=== PATIENT | male | born 1940 | race Caucasian/White ===

== ENCOUNTER 2017-01-10 22:51 | Observation (INO) | payer MEDICARE ==
[~2017-01-10] VITALS: Ht 177.8 cm; Wt 93.0 kg
[~2017-01-10 22:51] MED LIST: ALBU8.5H2 INHALATION; AMIO200T PO; ASCO-339 PO; ASPI81TA3 PO; AZIT250T4 PO; CALC500T3 PO; CETI-188 PO; CHOL100094 PO; CLOP75TA3 PO; LIP40 PO; METO25TA6 PO; MULT1CAP33 PO; NITR0.4T6 SL; PRE20 PO; PYRI100T2 PO; SYMINH IH
[2017-01-10 22:55] VITALS: BP 147/70; PULSE 70; RESP 22; O2SAT 92
[2017-01-10] MEDS ORDERED: Albuterol 2.5 mg/3 mL Inhalation Solution NEB ONE (23:00)
[2017-01-10] MEDS ORDERED: Ipratropium 0.02% 0.5 mg/2.5 mL Inhalation Solution NEB ONE (23:00)
--- NOTE | 2017-01-10 23:00 | ED.REPORT ---
HPI-Dyspnea / Wheezing Date of Service Jan 10, 2017 ED Provider: Dr. Zurita Pt is a 76 year old male with a history of COPD, A-fib, HTN, hyperlipidemia, and CAD who presents to the ED complaining of SOB onset 21:00 today. He c/o cough with brown discharge onset yesterday, and intermittent hip and knee pain onset for the past 2 weeks. He denies fever, diaphoresis, chills, leg swelling , and chest pain. The pt reports that he has not been on antibiotics in the past 2 months. Pt has a rescue nebulizer available at home, and has used it 2 times in the past 2 days. Nursing Notes Stated Complaint: SHORTNESSS OF BREATH Chief Complaint: Respiratory Distress Nursing Notes Reviewed: Yes ([facility], meds not reconciled, patient anticogulated on eliquis) Allergies: Coded Allergies: No Known Allergies (Verified Allergy, Unknown, 01/10/17) Scheduled Albuterol HFA (Proair HFA) 8.5 Gm Hfa.aer.ad 2 PUFFS INHALATION Q4H Amiodarone (Amiodarone) 200 Mg Tablet 400 MG PO DAILY Ascorbic Acid (Vitamin C with Nicci Hips) 500 Mg Tablet.er 500 MG PO DAILY Aspirin Chew (Aspirin Chew) 81 Mg Tab.chew 81 MG PO DAILY Atorvastatin (Lipitor) 40 Mg Tablet 40 MG PO DAILY Azithromycin (Zithromax (Z-Fitz)) 250 Mg Tablet 250 MG PO DIRECTED Take two tablets by mouth on day 1, then take one tablet daily on days 2 through 5. Budesonide/Formoterol 160-4.5 mcg Inh (Symbicort 160-4.5 mcg Inh) 1 Puff Inha 2 PUFF IH BID Calcium Carbonate (Calcium Carbonate) 500 Mg Tablet 500 MG PO DAILY Cetirizine HCl (Aller-Shelley) 10 Mg Tablet 10 MG PO DAILY Cholecalciferol (Vitamin D3) (Vitamin D3) 1,000 Unit Capsule 1,000 UNIT PO DAILY Clopidogrel Bisulfate (Plavix) 75 Mg Tablet 75 MG PO DAILY Metoprolol Tartrate (Metoprolol Tartrate) 25 Mg Tablet 25 MG PO BID Multivitamin (Multivitamins) 1 Each Capsule 1 EACH PO DAILY Prednisone (PredniSONE) 20 Mg Tablet 40 MG PO DAILY Pyridoxine HCl (Vitamin B-6) 100 Mg Tablet 100 MG PO DAILY Scheduled PRN Nitroglycerin SL (Nitroglycerin SL) 0.4 Mg Tab.subl 0.4 MG SL PRN PRN PRN For Chest Pain General Time Seen by MD: 22:59 Chief Complaint Shortness of breath Past Medical History Past Medical History Notes: 5 day admit to [place] on 08/10 Past Medical History high cholesterol arthritis hypertension diverticulitis edema atrial fibrillation - anticoagulated on eliquis Coronary artery disease COPD Past Surgical History CABG and stents at [place] [address] nose surgery fatty tumor off neck cataract vasectomy Reports: Tonsillectomy Family History Noncontributory Smoking History Current Every Day Smoker Social History Alcohol Use: 1-3 per day Drug Use: Denies drug use Other Social History: Good social support, , Local resident Ambulatory Status Independent Review of Systems Constitutional: Denies: Chills, Fever Respiratory: Reports: Dyspnea on exertion, Prod cough, brown, Shortness of breath Cardiovascular: Denies: Chest pain Musculoskeletal: Reports: Extremity pain Skin: Denies Diaphoresis, Denies Swelling Complete sys rev & neg: except as marked. Physical Exam Initial Vital Signs Vital Signs (First) Date Time Temp Pulse Resp B/P Pulse Ox O2 Delivery O2 Flow Rate FiO2 01/10/17 22:55 36.4 70 22 147/70 92 Room Air Initial VS: Reviewed, Vital signs normal Head / Eyes: Atraumatic, Normocephalic, PERRL Abdomen / GI: Soft, Non-tender Extremities: Vascular intact, Neuro intact Skin: Warm, Dry, No cyanosis Neurologic: Alert, Oriented, Nonfocal Psychiatric: Mood/affect normal, Behavior normal General/Constitutional: Awake, Alert, Cooperative Neck: Atraumatic, Supple, Full range of motion Respiratory / Chest: Atraumatic Tachypneic and moderately dypneic Cardiovascular: Heart rate NL, Regular rhythm, Heart sounds NL, No murmurs No JVD and no pitting edema. ENT: Atraumatic, Mucous membranes moist, Pharynx NL Profound bronchospastic Interpretation & Diagnostics Lab Results Interpretation Result Diagram: 01/10/17 2314 01/10/17 2314 Test 01/10/17 23:14 White Blood Count 9.0th/mm3 (3.8-10.1) Corrected White Blood Count th/mm3 (3.8-10.1) Red Blood Count 4.60mil/mm3 (4.40-5.80) Hemoglobin 15.0g/dL (13.8-17.2) Hematocrit 45.7% (41.0-50.0) Mean Corpuscular Volume 99.3fL (81-100) Mean Corpuscular Hemoglobin 32.6pg (27.0-35.0) Mean Corpuscular Hemoglobin Concent 32.8% (32.0-37.0) Red Cell Distribution Width 13.4% (12.3-15.4) Platelet Count 250bil/L (150-400) Neutrophils (%) (Auto) 68.1% (40-74) Lymphocytes (%) (Auto) 16.2% (14-46) Monocytes (%) (Auto) 9.7% (4-12) Eosinophils (%) (Auto) 5.3% (0-5) Basophils (%) (Auto) 0.4% (0-3) Sodium Level 141mEq/L (134-144) Potassium Level 4.2mEq/L (3.5-5.2) Chloride Level 102mEq/L (97-108) Carbon Dioxide Level 23mmol/L (18-29) Blood Urea Nitrogen 13mg/dL (8-27) Creatinine 0.95mg/dL (0.76-1.27) Estimat Glomerular Filtration Rate 82mL/min (>59) Glucose Level 112mg/dL (60-99) Lactic Acid Level 1.3mmol/L (0.4-2.0) Calcium Level 9.5mg/dL (8.5-10.1) Magnesium Level 1.9mg/dL (1.6-2.6) Total Bilirubin 0.3mg/dL (0.0-1.2) Aspartate Amino Transf (AST/SGOT) 21U/L (0-50) Alanine Aminotransferase (ALT/SGPT) 17U/L (0-44) Alkaline Phosphatase 93U/L (25-160) Troponin T 0.010ug/L (0.0-0.011) Pro-B-Type Natriuretic Peptide 672.5pg/mL (0-486) Total Protein 6.8g/dL (6.4-8.4) Albumin 3.6g/dL (3.4-5.0) Lab Results Interpretation: CBC nl CMP nl Lactic acid normal Troponin negative Pro BNP marginally elevated, patient chronic atrial fibrillation Coags not indicated, patient on eliquis Blood cultures pending ECG Interpretation ECG Interpretation: Atrial fibrillation, rate neutral with a rate of 67 RBBB with t wave abnormalities Unchanged from ECG on 07/19/16 Time: 23:07 Interpreted by: ED physician X-Ray Chest Interpretation Chest Xray Interpretation: No infiltrate visualized. View: Portable, 1 view Interpretation / Wet Read by: Wet read ED physician Re-Eval/Medical Decision Med Decision/Clinical Course This is a 76-year-old male history of COPD who presents to 5 days of increasing weakness cough brown sputum that worsened tonight and became more short of breath. He has a similar admission in the beginning of this year for COPD and is [place]. Chest pain, denies edema, and has no additional complaints. On exam satting 92%,'s profoundly bronchospastic mildly dyspneic. He received albuterol and Atrovent with some improvement, but is still bronchospastic. No infiltrate is appreciated my interpretation of his chest x-ray. Blood work is normal. The patient received empiric steroids, nebulizers-and given the persistence of symptoms, the patient is being admitted for continued management. He is being started on ceftriaxone and Zithromax for antimicrobial coverage. Blood cultures are pending. EKG demonstrated rate controlled atrial fibrillation. Patient is chronically anticoagulated on Eilquis. Patient's case is discussed the admitting hospitalist please admitted improved condition. Source of Hx: Old records Re-Evaluation/Progress : Time of Eval: 23:43 )( Re-Eval Resp / Chest: No respiratory distress Re-Evaluation/Progress Note: Pt rechecked. Informed pt of plan for admission. Pt understands and agrees with plan for admission. All questions addressed. Consultation : Referral / Consult Name: Jakub Suarez MD Consulted With: Hospitalist Call Returned at: 23:44 [employer] Lieutenant: Will see patient, Agrees with eval, Agrees with plan, Accepts admit Differential Diagnosis: Positive: COPD exacerbation, Dysrhythmia (Chronic Afib) , Negative: Acute coronary syndrome, Airway obstruction, Congestive heart failure, Foreign body airway, Hypertensive emergency, Myocardial infarction, Pneumothorax, Pulmonary embolism, Respiratory failure Counseled Regarding: Diagnosis, Lab results, Need for admission Discharge & Departure Impression: Primary Impression: COPD with acute exacerbation Additional Impressions: Anticoagulated by anticoagulation treatment Chronic atrial fibrillation Disposition: ADMITTED TO HOSPITAL Discharge Condition All VS Reviewed: Yes Condition: Stable Referrals: Kashmir Grossman MD (PCP) Scribnael Attestation Portions of this note were transcribed by Sharon Hall. I, Dr. Zurita personally performed the history, physical exam and medical decision-making; I reviewed and confirmed the accuracy of the information in the transcribed note. Signed by: Rey Broderick, 01/10/17 and 23:50. copies to: Kashmir Grossman MD, Matthew F MD Jan 10, 2017 23:00 Sharon Salazar Jan 10, 2017 23:18
[2017-01-10 23:11] VITALS: PULSE 65; RESP 22; O2SAT 95
[2017-01-10] MEDS ORDERED: MethylprednisoLONE Sodium Succinate 62.5 mg/mL 2 mL Inj IVPUSH ONE (23:15)
[2017-01-10 23:33] LABS: BASOPHILS % (AUTO) 0.4 % (0-3); EOSINOPHILS % (AUTO) 5.3 % (0-5); MONOCYTES % (AUTO) 9.7 % (4-12); Mean Corpuscular Hemoglobin 32.6 pg (27.0-35.0); Mean Corpuscular Volume 99.3 fL (81-100); NEUTROPHILS % (AUTO) 68.1 % (40-74); Platelet Count 250 bil/L (150-400)
[2017-01-10] MEDS ORDERED: Azithromycin Inj 500 MG in Dextrose 5% w/Vial Mate 250 ML IV ONE (23:40)
[2017-01-10] MEDS ORDERED: cefTRIAXone Inj 2,000 MG in Dextrose 5% Minibag Plus 50 ML IV ONE (23:40)
[2017-01-10 23:50] LABS: TROPONIN T 0.01 ug/L (0.0-0.011)
[2017-01-11] VITALS (16 sets, daily range): BP systolic 115–136; BP diastolic 60–77; PULSE 60–87; RESP 16–20; O2SAT 90–98
[2017-01-11 00:01] LABS: Magnesium 1.9 mg/dL (1.6-2.6)
[2017-01-11] MEDS ORDERED: Alum-Mag Hydrox-Simeth 30 mL Suspension PO PRN (00:40)
[2017-01-11] MEDS ORDERED: Ondansetron 2 mg/mL 2 mL Inj IVPUSH PRN (00:40)
[2017-01-11] MEDS ORDERED: Polyethylene Glycol (PEG) 17 Gm Powder PO PRN (00:40)
[2017-01-11] MEDS ORDERED: Albuterol 2.5 mg/3 mL Inhalation Solution NEB PRN (00:45)
[2017-01-11 00:59] LABS: INR 0.95 ratio
[2017-01-11 01:59] LABS: APPEARANCE,URINE HAZY (CLEAR,HAZY); COLOR,URINE YELLOW (YELLOW); OCCULT BLOOD,URINE NEGATIVE (NEGATIVE); PH,URINE 5.5 (5.0-8.0)
--- NOTE | 2017-01-11 02:30 | NUR ---
Admission: Pt admitted to room 2007 at 0130 in stable condition. Pt placed on telemetry monitoring and assisted to the BR to void. Urine sample collected and sent to lab. VSS; pt saturating well on RA. Pt noted to be in Aflutter in the 60s with an IVCD. Pt denies any pain or SOB. Initial assessment completed as charted. Dr. Nieves at the bedside at 0155. O2 saturations to be 88 to 92%. Admission completed as charted. Skin intact. Pt's home CPAP set up and pt placed on cont. pulse oximetry. Will cont. to monitor.
--- NOTE | 2017-01-11 03:11 | PCM.HPMED ---
Subjective Date of Service Jan 11, 2017 Primary Provider: Admitting Physician: Jakub Suarez MD Primary Care Physician: Kashmir Grossman MD Attending Physician: Jakub Suarez MD Admit Status: From the Emergency Department Chief Complaint: Shortness of breath History of Present Illness: The patient is a 76-year-old male with past medical history remarkable for coronary artery disease with CABG 2, atrial flutter on Eliquis, and COPD exacerbation who complains of 5 days of worsening shortness of breath. The patient states that episodes of shortness of breath and not unusual for him and typically he will be seen in urgent care given steroids and other oral medications and sent home without issue. The patient states that he lives in [facility] during the winter time and believes that the dry air makes his COPD exacerbations typically easier to handle. The patient states that for the last 5 days he has noticed an increased cough with productive sputum with units completely unusual for him. The patient states that last , January 06 he noticed that he had severe chills and could not get warm all day but denies any fever or chills since that time. The patient is also noticed a runny nose and mild sore throat over this amount of time. The patient also describes weird joint pain which is transient and started in his right knee then moved to his left hip and his left knee. The patient denies any difficulty with urination, difficulty with his vision, or risky sexual encounter recently. Pt has a rescue nebulizer available at home, and has used it 2 times in the past 2 days. Review of Systems: A comprehensive review of systems was obtained and all are negative except for what is included in the history of present illness. Allergies Coded Allergies: No Known Allergies (Verified Allergy, Unknown, 01/10/17) Home Medications Albuterol HFA 2 PUFFS INHALATION Q4H Ascorbic Acid 500 MG PO DAILY Aspirin Chew 81 MG PO DAILY Atorvastatin 40 MG PO DAILY Azithromycin (Zithromax (Z-Fitz)) 250 Mg Tablet 250 MG PO DIRECTED Take two tablets by mouth on day 1, then take one tablet daily on days 2 through 5. Budesonide/Formoterol 160-4.5 mcg 2 PUFF IH BID Calcium Carbonate 500 MG PO DAILY Cetirizine HCl 10 MG PO DAILY Cholecalciferol 1,000 UNIT PO DAILY Clopidogrel Bisulfate 75 MG PO DAILY Metoprolol Tartrate 37.5 MG PO BID Multivitamin 1 EACH PO DAILY Prednisone 40 MG PO DAILY Pyridoxine HCl 100 MG PO DAILY Losartan 50 mg daily Amlodipine 5 mg daily Nitroglycerin SL 0.4 MG SL PRN For Chest Pain PMH Hyperlipidemia hypertension diverticulitis atrial fibrillation/flutter - anticoagulated on eliquis Coronary artery disease COPD Arthritis/degenerative joint disease Surgical History CABG 2 at [facility] 2015 Sinus surgery Benign fatty tumor off neck cataracts vasectomy Tonsillectomy Right shoulder arthroscopic Family History Mother had throat cancer and at 93 years old Father had prostate cancer and at 77 years old Social History Occupation: retired Hx Alcohol Use: Yes (Bur[place] 3 drinks/day) Hx Substance Use: No Hx Tobacco Use: Yes Smoking Status: Current Every Day Smoker (greater than 62-ojmg-vfvy history) Living Arrangement: with Family Independent [facility]sp (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 and [place], [place] in the winter) Exam Vital Signs Vital Sign - Last Date Time Temp Pulse Resp B/P Pulse Ox O2 Delivery O2 Flow Rate FiO2 01/11/17 01:54 87 01/11/17 01:30 36.5 20 120/75 93 Room Air Intake and Output 01/10/17 01/10/17 01/11/17 Cumulative From/Thru 15:00 23:00 07:00 01/10/17 22:55 - 01/11/17 01:49 Intake Total 300 ml 300 ml Balance 300 ml 300 ml Intake IV Total 300 ml 300 ml Exam General: Elderly male appearing approximately stated age in no acute distress, well-developed, well-nourished, appropriately interactive and cooperative Eyes: Pupils equal round reactive to light, extraocular motion intact, anicteric sclera, noninjected conjunctiva HENT: Normocephalic atraumatic, oropharynx clear moist mucous membranes without central cyanosis Neck: Supple with full range of motion. Trachea midline with no JVD, however difficult to assess due to thick neck Cardiovascular: Very distant heart sounds noted, irregularly irregular rate and rhythm no murmurs rubs or gallops noted Pulmonary: Diffuse wheezing noted in all lung welsh with decreased air movement , without rhonchi or rales noted, Normal respiratory effort with no use of accessory muscles. GI: Bowel tones present. Soft, nontender, nondistended. Extremities: No clubbing cyanosis or edema noted Skin: Warm and dry, no rash, ulcers Neurological: Alert, oriented, no focal neurologic deficits noted Psychiatric: Normal mood and affect. Lab and Diagnostics Result Diagram: 01/10/17231301/10/172313 X-Rays, CTs and MRIs No acute cardiopulmonary processes noted 12-lead ECG ECG Interpretation: Atrial fibrillation/flutter, rate of 67, with a RBBB with t wave abnormalities unchanged from ECG on 07/19/16 Assessment & Plan The patient is a 76-year-old male with past medical history remarkable for coronary artery disease with CABG 2, atrial flutter on Eliquis, and COPD exacerbation who complains of 5 days of worsening shortness of breath. # Acute COPD exacerbation - The patient reports previous history of regular COPD exacerbations requiring oral steroids and nebulizers typically without complications - The patient has diffuse wheezing without rhonchi or other coarse breath sounds noted and chest x-ray negative for acute cardiopulmonary processes with pro-calcitonin 0.11 - The patient was started on methylprednisolone 125 mg IV in the emergency department - Convert methylprednisolone IV to prednisone 40 mg and continue for 5 day course - The patient was started on IV Rocephin and IV azithromycin in accordance with recent increased phlegm production and need for hospitalization in an acute COPD exacerbation - Continue azithromycin 500 mg daily as well as Rocephin 1 g daily, which may be converted to an oral agent prior to discharge - Ipratropium/albuterol nebulizer 4 times a day while awake - Albuterol nebulizer every 2 hours when necessary for shortness of breath - Nursing order to maintain oxygen saturation between 88 - 94% given chronic COPD and likely CO2 retainer # Chronic atrial flutter - The patient has a history of amiodarone use however on his medication list he currently denies any use of anti-arrhythmia agents, this should be confirmed in the a.m. - The patient does state that he takes a Apixiban 5 mg twice a day - The patient's current medication list indicates that he is on metoprolol succinate 37.5 mg twice a day - Continue patient's metoprolol and Apixiban, however day team to confirm dose of metoprolol succinate # Chronic coronary artery disease - Patient denies chest pain at this time, and troponin negative 1 - Patient has a history of CABG 2 performed in [facility] rec indicates the patient is on aspirin 81 mg daily as well as clopidogrel , and fails to recognize anticoagulation # Chronic Hyperlipidemia - Continue statin therapy - Atorvastatin 40 mg daily # Chronic hypertension - Continue outpatient antihypertensive therapy, patient's home medication list includes losartan and amlodipine - Losartan 50 mg daily - Amlodipine 5 mg daily - Metoprolol succinate 37.5 mg twice a day DVT prophylaxis: Apixiban 5mg BID GI prophylaxis: Not indicated at this time CODE STATUS full The patient is admitted for observation status with expected length of stay less than two midnights given presenting symptoms, likely diagnoses, possible complications, and required treatments. Pain Evaluation: Adequate Pain Control GI Prophylaxis: Not indicated VTE Prophylaxis Indicated: Meets Criteria for Anticoag Therapy VTE Prophylaxis: Other (chronically anticoagulated on Apixiban) Resuscitation Status: CPR: Attempt Resuscitation Attending Statement The patient was seen and examined together with Dr. Gonzales on 01/10 and I agree with the history, exam and plan as outlined in the note above. Farhad Nieves DO Jan 11, 2017 03:11 Jakub Suarez MD Jan 11, 2017 19:08
[2017-01-11] MEDS ORDERED: LOSA50TA37 PO (03:37)
[2017-01-11] MEDS ORDERED: APIX5TAB PO (03:38)
[2017-01-11] MEDS ORDERED: AMLO5TAB2 PO (03:42)
[2017-01-11] MEDS ORDERED: METO25TA99 PO (03:50)
[2017-01-11] MEDS ORDERED: MULT-666 PO (03:54)
[2017-01-11] MEDS: Albuterol-Ipratropium 3 mL Inhalation Solution NEB SCH ×4 (06:30→20:44)
--- NOTE | 2017-01-11 08:25 | DRSVH ---
PROCEDURE: X-RAY CHEST ONE VIEW, PORTABLE ([id number]) INDICATIONS: SHORT OF BREATH TECHNIQUE: One view of the chest was acquired. COMPARISON: [facility], CR, XR CHEST 2VW, 07/19/2016, 6:20. FINDINGS: Surgical changes and devices: Sternotomy wires and CABG clips. Lungs and pleura: No pleural effusions or pneumothorax. Lungs are clear. Chronic diffuse interstiti al changes. Mediastinum: Mediastinal contours appear normal. Heart size is normal. Bones and chest wall: No suspicious bony lesions. Overlying soft tissues appear unremarkable. IMPRESSION: No interval change or acute disease since 07/19/16. Bibasilar scarring/atelectasis. Dictated by: Best Christianson M.D. on 01/11/2017 at 8:23 Approved by: Best Christianson M.D. on 01/11/2017 at 8:24
[2017-01-11] MEDS: predniSONE 20 mg Tablet PO SCH (08:34)
[2017-01-11] MEDS: MeTOProlol XL 25 mg ER24 Tablet PO SCH ×2 (08:35→19:59)
[2017-01-11] MEDS ORDERED: MULT-1018 PO (09:43)
--- NOTE | 2017-01-11 10:00 | NUR ---
Case Management: BUCK given and explained to pt. Park KINNEYRN
--- NOTE | 2017-01-11 10:24 | NUR ---
walk pt walked one full loop with RN, JM. Pt wobbled a little a couple of times but was mostly stable on his feet. Advised pt to get up and walk a few times a day but someone must be with him.
--- NOTE | 2017-01-11 16:16 | NUR ---
Social Work: Initial Assessment D: EMR reviewed. Pt is a 76 y/o male Ronnie for acute CPD exacerbation. VERO met with pt at bedside to conduct initial assessment. Pt was alert and oriented x3. SW explained role and wrote phone number on white board. Pt's insurance is Medicare and AARP Supplemental. PCP is Kashmir Grossman MD. Pt gave verbal consent to contact spouse, Cathryn Monroe, for discharge planning. VERO confirmed pt has completed DPOA/advanced directive ppw and provided a copy to the hospital. Pt does not have LTC insurance or VA benefits. Pt has no hx of HH or a SNF. Pt does not use any DME. Pt is independent with ADLs. Pt drives. Pt is independent at baseline. Pt lives in a single-story home with 2 steps to enter in [place] with family. Pt will transport home with spouse via POV when medically stable. VERO does not anticipate any discharge needs but will continue to follow if needs arise. A: Pt who is independent at baseline. P: Pt will transport home with spouse via POV when medically stable. VERO does not anticipate any discharge needs but will continue to follow if needs arise. SARAH Urena Addendum: 01/11/17 at 1619 by ODELL GUSTAFSON Amended: Links added.
--- NOTE | 2017-01-11 17:29 | NUR ---
mobility/oxygen pt has been on RA all day satting 92-95%. Pt has walked the big loop 4 times, tolerating well. After walking his sat is 92% on RA.
--- NOTE | 2017-01-11 18:37 | PCM.PNMED ---
Subjective Date of Service Jan 11, 2017 Subjective 76-year-old man with history of COPD presents with increased cough and respiratory distress. He reports feeling markedly better today. States that bronchodilators are very effective. No significant productive cough today. No fevers or chills. Exam Vital Signs Vital Sign - Last Date Time Temp Pulse Resp B/P Pulse Ox O2 Delivery O2 Flow Rate FiO2 01/11/17 16:16 37.0 62 18 129/77 93 Room Air 01/11/17 16:05 21 Intake and Output 01/10/17 01/10/17 01/11/17 Cumulative From/Thru 14:59 22:59 06:59 01/10/17 22:55 - 01/11/17 06:02 Intake Total 750 ml 750 ml Output Total 200 ml 200 ml Balance 550 ml 550 ml Intake Oral 200 ml 200 ml IV Total 550 ml 550 ml Output Urine Total 200 ml 200 ml Exam General: Healthy-appearing no acute distress HEENT: sclerae anicteric, oral mucosa moist Neck: no JVD Chest: Diffuse mild wheezes, no focal rales or dullness Cardiac: S1S2, regular, no murmur Abdomen: BS normal, non-tender Extremities: No pitting edema Neuro: A&O, cranial nerves symmetric, motor strength 5/5, coordination normal IVs and Medications Medications Reviewed: Medications were reviewed in detail Lab and Diagnostics Result Diagram: 01/10/17231301/10/174 X-Rays, CTs and MRIs No acute cardiopulmonary processes noted 12-lead ECG ECG Interpretation: Atrial fibrillation/flutter, rate of 67, with a RBBB with t wave abnormalities unchanged from ECG on 07/19/16 Assessment & Plan # Acute COPD exacerbation - The patient reports previous history of regular COPD exacerbations requiring oral steroids and nebulizers typically without complications - The patient has diffuse wheezing without rhonchi or other coarse breath sounds noted and chest x-ray negative for acute cardiopulmonary processes with pro-calcitonin 0.11 - The patient was started on methylprednisolone 125 mg IV in the emergency department - Convert methylprednisolone IV to prednisone 40 mg and continue for 5 day course - The patient was started on IV Rocephin and IV azithromycin in accordance with recent increased phlegm production and need for hospitalization in an acute COPD exacerbation - Continue azithromycin 500 mg daily as well as Rocephin 1 g daily, which may be converted to an oral agent prior to discharge - Ipratropium/albuterol nebulizer 4 times a day while awake - Albuterol nebulizer every 2 hours when necessary for shortness of breath - Nursing order to maintain oxygen saturation between 88 - 94% given chronic COPD and likely CO2 retainer # Chronic atrial flutter - The patient has a history of amiodarone use however on his medication list he currently denies any use of anti-arrhythmia agents, this should be confirmed in the a.m. - The patient does state that he takes a Apixiban 5 mg twice a day - The patient's current medication list indicates that he is on metoprolol succinate 37.5 mg twice a day - Continue patient's metoprolol and Apixiban, # Chronic coronary artery disease - Patient denies chest pain at this time, and troponin negative 1 - Patient has a history of CABG 2 performed in [place] [facility] rec indicates the patient is on aspirin 81 mg daily as well as clopidogrel , and fails to recognize anticoagulation # Chronic Hyperlipidemia - Continue statin therapy - Atorvastatin 40 mg daily # Chronic hypertension - Continue outpatient antihypertensive therapy, patient's home medication list includes losartan and amlodipine - Losartan 50 mg daily - Amlodipine 5 mg daily - Metoprolol succinate 37.5 mg twice a day DVT prophylaxis: Apixiban 5mg BID GI prophylaxis: Not indicated at this time CODE STATUS full The patient is admitted for observation status with expected length of stay less than two midnights given presenting symptoms, likely diagnoses, possible complications, and required treatments. GI Prophylaxis: Not indicated VTE Prophylaxis: Other (chronically anticoagulated on Apixiban) VTE Mechanical Devices: Intermittant Pneumatic CD Resuscitation Status: CPR: Attempt Resuscitation Time spent 25 minutes Darrin Mancera MD Jan 11, 2017 18:37
[2017-01-11] MEDS ORDERED: cefTRIAXone Inj 1,000 MG in Dextrose 5% Minibag Plus 50 ML IV SCH (20:30)
[2017-01-11] MEDS ORDERED: Azithromycin Inj 500 MG in Dextrose 5% w/Vial Mate 250 ML IV SCH (20:30)
[2017-01-12 03:30] VITALS: BP 117/71; PULSE 55; RESP 16; O2SAT 93
[2017-01-12] MEDS: Albuterol-Ipratropium 3 mL Inhalation Solution NEB SCH ×2 (06:00→09:00)
[2017-01-12] MEDS: predniSONE 20 mg Tablet PO SCH (08:18)
[2017-01-12] MEDS: MeTOProlol XL 25 mg ER24 Tablet PO SCH (08:19)
[2017-01-12 08:49] VITALS: BP 126/78; PULSE 62; RESP 18; O2SAT 94
[2017-01-12 09:01] VITALS: PULSE 82; RESP 16; O2SAT 94
[2017-01-12 10:15] VITALS: PULSE 60
--- NOTE | 2017-01-12 11:23 | PCM.DIMED ---
Discharge Instructions Date of Service Jan 12, 2017 Dates of Hospitalization Jan 11, 2017 at 00:52 Discharge Diagnosis Discharge Diagnosis # Acute COPD exacerbation, improved # Chronic atrial flutter, stable # Chronic coronary artery disease, stable # Chronic Hyperlipidemia, stable # Chronic hypertension, stable Diet Discharge Diet: No restrictions Activity Discharge Activity: Limited until seen by PCP Call your provider Call your provider for: Fever or Chills, Shortness of breath Patient Instructions Follow-up Provider: Kashmir Grossman MD Follow-up with PCP in: 1 week Kenny Toscano MD Jan 12, 2017 11:23
[2017-01-12] MEDS ORDERED: DOXY100C2 PO (11:26)
[2017-01-12] MEDS ORDERED: TIOT18CA3 IH (11:26)
[2017-01-12] MEDS ORDERED: PRED-508 PO (11:26)
[2017-01-12] MEDS ORDERED: ALBU8.5H2 INHALATION (11:27)
--- NOTE | 2017-01-12 11:57 | NUR ---
discharge all discharge meds and instructions reviewed with pt and his . PIV dc'd with ease. Pt walked out with garo Mehta CNA.
--- NOTE | 2017-01-12 16:22 | PCM.DC.MED ---
Discharge Summary Date of Service Jan 12, 2017 Dates of Hospitalization Date of Hospital Admission Jan 11, 2017 at 00:52 Date of Discharge: Jan 12, 2017 Providers: Admitting Physician: Jakub Suarez MD Primary Care Physician: Kashmir Grossman MD Attending Physician: Jakub Suarez MD Diagnosis at Time of Discharge Diagnosis at Time of Discharge # Acute COPD exacerbation, improved # Chronic atrial flutter, stable # Chronic coronary artery disease, stable # Chronic Hyperlipidemia, stable # Chronic hypertension, stable Consultations None Procedures XRay, CTs & MRIs No acute cardiopulmonary processes noted ECG 12 Lead ECG Interpretation: Atrial fibrillation/flutter, rate of 67, with a RBBB with t wave abnormalities unchanged from ECG on 07/19/16 Brief History The patient is a 76-year-old male with past medical history remarkable for coronary artery disease with CABG 2, atrial flutter on Eliquis, and COPD exacerbation who complains of 5 days of worsening shortness of breath. The patient states that episodes of shortness of breath and not unusual for him and typically he will be seen in urgent care given steroids and other oral medications and sent home without issue. The patient states that he lives in [facility] during the winter time and believes that the dry air makes his COPD exacerbations typically easier to handle. The patient states that for the last 5 days he has noticed an increased cough with productive sputum with units completely unusual for him. The patient states that last , January 06 he noticed that he had severe chills and could not get warm all day but denies any fever or chills since that time. The patient is also noticed a runny nose and mild sore throat over this amount of time. The patient also describes weird joint pain which is transient and started in his right knee then moved to his left hip and his left knee. The patient denies any difficulty with urination, difficulty with his vision, or risky sexual encounter recently. Pt has a rescue nebulizer available at home, and has used it 2 times in the past 2 days. Hospital Course # Acute COPD exacerbation - The patient reports previous history of regular COPD exacerbations requiring oral steroids and nebulizers typically without complications - The patient has diffuse wheezing without rhonchi or other coarse breath sounds noted and chest x-ray negative for acute cardiopulmonary processes with pro-calcitonin 0.11 - The patient was started on methylprednisolone 125 mg IV in the emergency department - Convert methylprednisolone IV to prednisone 40 mg and continue for 5 day course - The patient was started on IV Rocephin and IV azithromycin in accordance with recent increased phlegm production and need for hospitalization in an acute COPD exacerbation - Continue azithromycin 500 mg daily as well as Rocephin 1 g daily, which may be converted to an oral agent prior to discharge - Ipratropium/albuterol nebulizer 4 times a day while awake - Albuterol nebulizer every 2 hours when necessary for shortness of breath - Nursing order to maintain oxygen saturation between 88 - 94% given chronic COPD and likely CO2 retainer # Chronic atrial flutter - The patient has a history of amiodarone use however on his medication list he currently denies any use of anti-arrhythmia agents, this should be confirmed in the a.m. - The patient does state that he takes a Apixiban 5 mg twice a day - The patient's current medication list indicates that he is on metoprolol succinate 37.5 mg twice a day - Continue patient's metoprolol and Apixiban, # Chronic coronary artery disease - Patient denies chest pain at this time, and troponin negative 1 - Patient has a history of CABG 2 performed in [facility] rec indicates the patient is on aspirin 81 mg daily as well as clopidogrel , and fails to recognize anticoagulation # Chronic Hyperlipidemia - Continue statin therapy - Atorvastatin 40 mg daily # Chronic hypertension - Continue outpatient antihypertensive therapy, patient's home medication list includes losartan and amlodipine - Losartan 50 mg daily - Amlodipine 5 mg daily - Metoprolol succinate 37.5 mg twice a day DVT prophylaxis: Apixiban 5mg BID GI prophylaxis: Not indicated at this time CODE STATUS full The patient is admitted for observation status with expected length of stay less than two midnights given presenting symptoms, likely diagnoses, possible complications, and required treatments. Hospital course. The patient was admitted and treated for COPD exacerbation with both steroids and bronchodilators. He did not improve at least 80% by his own perspective. Her discharge is able to ambulate with minimal dyspnea and no desaturations. He was felt to be stable for discharge. Exam Vital Signs (Last) Date Time Temp Pulse Resp B/P Pulse Ox O2 Delivery O2 Flow Rate FiO2 01/12/17 10:15 60 01/12/17 09:01 16 94 Room Air 01/12/17 08:49 36.9 126/78 01/11/17 16:05 21 Exam Patient was seen and examined on the day of discharge Test 01/10/17 23:14 01/10/17 23:30 01/11/17 01:35 White Blood Count 9.0th/mm3 (3.8-10.1) Corrected White Blood Count th/mm3 (3.8-10.1) Red Blood Count 4.60mil/mm3 (4.40-5.80) Hemoglobin 15.0g/dL (13.8-17.2) Hematocrit 45.7% (41.0-50.0) Mean Corpuscular Volume 99.3fL (81-100) Mean Corpuscular Hemoglobin 32.6pg (27.0-35.0) Mean Corpuscular Hemoglobin Concent 32.8% (32.0-37.0) Red Cell Distribution Width 13.4% (12.3-15.4) Platelet Count 250bil/L (150-400) Neutrophils (%) (Auto) 68.1% (40-74) Lymphocytes (%) (Auto) 16.2% (14-46) Monocytes (%) (Auto) 9.7% (4-12) Eosinophils (%) (Auto) 5.3% (0-5) Basophils (%) (Auto) 0.4% (0-3) Sodium Level 141mEq/L (134-144) Potassium Level 4.2mEq/L (3.5-5.2) Chloride Level 102mEq/L (97-108) Carbon Dioxide Level 23mmol/L (18-29) Blood Urea Nitrogen 13mg/dL (8-27) Creatinine 0.95mg/dL (0.76-1.27) Estimat Glomerular Filtration Rate 82mL/min (>59) Glucose Level 112mg/dL (60-99) Lactic Acid Level 1.3mmol/L (0.4-2.0) Calcium Level 9.5mg/dL (8.5-10.1) Magnesium Level 1.9mg/dL (1.6-2.6) Total Bilirubin 0.3mg/dL (0.0-1.2) Aspartate Amino Transf (AST/SGOT) 21U/L (0-50) Alanine Aminotransferase (ALT/SGPT) 17U/L (0-44) Alkaline Phosphatase 93U/L (25-160) Troponin T 0.010ug/L (0.0-0.011) Pro-B-Type Natriuretic Peptide 672.5pg/mL (0-486) Total Protein 6.8g/dL (6.4-8.4) Albumin 3.6g/dL (3.4-5.0) Prothrombin Time 10.1sec (8.1-12.5) Prothromb Time International Ratio 0.95ratio Activated Partial Thromboplast Time 31.5sec (22.8-33.0) Hemoglobin A1c 5.4% (4.8-5.6) Procalcitonin 0.11ng/mL (0.00-0.08) Urine Color Yellow (YELLOW) Urine Appearance Hazy (CLEAR,HAZY) Urine pH 5.5 (5.0-8.0) Urine Specific [place] 1.020 (1.003-1.035) Urine Protein Negativemg/dL (NEG,TRACE) Urine Glucose (UA) Negativemg/dL (NEGATIVE) Urine Ketones Tracemg/dL (NEGATIVE) Urine Occult Blood Negative (NEGATIVE) Urine Nitrite Negative (NEGATIVE) Urine Bilirubin Negative (NEGATIVE) Urine Urobilinogen 1.0mg/dL (NORMAL) Urine Leukocyte Esterase Trace (NEGATIVE) Urine RBC 0-2/hpf (0-2) Urine WBC 0-5/hpf (0-5) Urine Epithelial Cells Few/hpf (NONE-MOD) Urine Crystals None seen (NONE SEEN) Urine Bacteria Few/hpf (NONE-FEW) Urine Hyaline Casts None/lpf (NONE) Urine Granular Casts None seen (NONE SEEN) Urine Waxy Casts None seen (NONE SEEN) Urine Red Blood Cell Casts None seen (NONE SEEN) Urine White Blood Cell Casts None seen (NONE SEEN) Urine Mucus Present (None Seen) Urine Trichomonas None seen (NONE SEEN) Urine Yeast None (NONE SEEN) Urinalysis Comment None Urine Culture Reflexed Indicated Discharge Medications Discharge Medications Albuterol HFA (Proair HFA) 8.5 Gm Hfa.aer.ad 2 PUFFS INHALATION Q4H Prescribed by: RIYA DAMON MD Amlodipine (Amlodipine) 5 Mg Tablet 5 MG PO DAILY (Reported) Apixaban (Eliquis) 5 Mg Tablet 5 MG PO BID (Reported) Aspirin Chew (Aspirin Chew) 81 Mg Tab.chew 81 MG PO DAILY (Reported) Atorvastatin (Lipitor) 40 Mg Tablet 40 MG PO DAILY (Reported) Doxycycline Hyclate (Doxycycline Hyclate) 100 Mg Capsule 100 MG PO BID Prescribed by: RIYA DAMON MD Losartan Potassium (Losartan Potassium) 50 Mg Tablet 50 MG PO DAILY (Reported) Metoprolol Succinate ER (Metoprolol Succinate ER) 25 Mg Tab.er.24h 37.5 MG PO BID (Reported) Multivitamin (Multi Vitamin Daily) 1 Each Tablet 1 TABLET PO DAILY (Reported) Prednisone (Deltasone) 20 Mg Tablet 40 MG PO DAILY Prescribed by: RIYA DAMON MD Tiotropium [place] (Spiriva) 18 Mcg Cap.w.dev 18 MCG IH DAILY Prescribed by: RIYA DAMON MD As needed Nitroglycerin SL (Nitroglycerin SL) 0.4 Mg Tab.subl 0.4 MG SL PRN PRN PRN For Chest Pain (Reported) Followup Plan Disposition: Home Discharge Diet: No restrictions Discharge Activity: Limited until seen by PCP Follow-up Provider: Kashmir Grossman MD Follow-up with PCP in: 1 week Time spent 40 minutes Riya Damon MD Jan 12, 2017 16:22
== END 2017-01-12 12:00 | disposition home or self-care (01) ==
LOC: SED 22:51 → PCC 01-11 00:52 → INTOOBSV 01-11 00:52
PROVIDERS: ADMIT Hospitalist; ATTEND Hospitalist
DX: J44.1 Chronic obstructive pulmonary disease with (acute) exacerbation (principal); I48.92 Unspecified atrial flutter; I25.10 Atherosclerotic heart disease of native coronary artery without angina pectoris; E78.5 Hyperlipidemia, unspecified; I10 Essential (primary) hypertension; M19.90 Unspecified osteoarthritis, unspecified site; F17.210 Nicotine dependence, cigarettes, uncomplicated; Z95.1 Presence of aortocoronary bypass graft; Z79.01 Long term (current) use of anticoagulants; Z79.52 Long term (current) use of systemic steroids; Z79.51 Long term (current) use of inhaled steroids; Z79.82 Long term (current) use of aspirin
CPT/HCPCS: 36415; 71010; 80053; 81000; 83036; 83605; 83735; 83880; 84145; 84484; 85025; 85610; 85730; 87040; 87070; 87086; 87205; 93005; 94640; 94664; 96365; 96366; 96368; 96375; 99285; G0378; J0456; J0696; J2930; J7613; J7620